=== PATIENT | male | born 1985 | race Caucasian/White ===

== ENCOUNTER 2016-11-06 12:54 | Emergency (ER) | payer OTHER ==
[~2016-11-06] VITALS: Ht 172.7 cm; Wt 70.0 kg
[~2016-11-06 12:54] MED LIST: DOXY100T PO; Z.0.NO CURRENT MEDS
[2016-11-06 12:57] VITALS: BP 162/94; PULSE 88; RESP 20; TEMP 97.8; O2SAT 100
[2016-11-06 13:12] LABS: MEAN CORPUSCULAR HGB CONC 36.2 % (32.0-36.0)
[2016-11-06] MEDS ORDERED: KETOROLAC TROMETHAMINE 30 MG/ML (IVP) VIAL IV PUSH ONE (13:15)
[2016-11-06] MEDS ORDERED: IOHEXOL 350 MG/ML 10 ML VIAL (for RAD DIAG) IV ONE (13:28)
--- NOTE | 2016-11-06 13:31 | PD ---
HPI Chief Complaint: Abdominal Pain Time Seen by Provider: 13:27 Travel History International Travel<30 days: No Contact w/Intl Traveler<30days: No Traveled to known affect area: No History of Present Illness HPI 31-year-old male that presents to the ED for evaluation of possible inguinal hernia. Per patient he has a history of inguinal hernia when he was a child but got repair. The patient has had no issues but about a week ago he sneezed and he felt a pop on his left lower groin. Per patient ever since any having some discomfort especially when he does heavy lifting or moves. Able to move however. He does state that he has a big bulging on the left groin. Per patient she's had some constipation since but denies any other symptom. No fevers chills or sweats. No chest pain or shortness of breath. Patient is 5 out of 10. Currently he has no pain. Patient denies any urinary symptoms. Patient has not general surgeon her PCP. Patient has no medical prongs. Allergies to amoxicillin. Patient came here today because he is concerned that he may need surgery for this. He denies any testicular pain but does state that some of the swelling goes into the testicles on the left side. PFSH Past Medical History Bipolar Disorder: Yes Depression: Yes (HX OF HALLUCINATIONS/SUICIDAL/HOMICIDAL IDEATIONS/SLEEP AND EATING DISORDER) Cardiovascular Problems: No Cerebrovascular Accident: No Diminished Hearing: No Genitourinary: No Headaches: Yes Musculoskeletal: No Neurologic: Yes Respiratory: No Migraines: No Seizures: Yes (LAST REPORTED 2007) Past Surgical History Abdominal Surgery: Yes (HERNIA REPAIR AT AGE 4 OR 5) Ear Surgery: No Endocrine Surgery: No Eye Surgery: No Genitourinary Surgery: No Oral Surgery: No Other Surgery: Yes ([place] DEPOSIT REMOVAL) Social History Alcohol Use: Yes (etoh daily approx 6 pk beer) Tobacco Use: Yes (PPD) Substance Use: Yes Allergies-Medications (Allergen,Severity, Reaction): Coded Allergies: Amoxicillin (Verified Allergy, Severe, 11/06/16) Reported Meds & Prescriptions Reported Meds & Active Scripts Active Diclofenac Sodium DR (Diclofenac Sodium) 75 Mg Tabdr 75 Mg PO BID PRN Review of Systems General / Constitutional: No: Fever, Chills, Weight Gain, Weight Loss, Other Eyes: No: Diploplia, Blurred Vision, Photophobia, Drainage, Redness, Foreign Body Sensation, Pain, Tearing, Blind Spots, Visual changes, Blindness, Other HENT: No: Headaches, Vertigo, Lightheadedness, Sore Throat, Rhinitis, Rhinorrhea, Congestion, Nosebleed, Neck Stiffness, Neck Pain, Masses, Gingival Bleeding, Dental Difficulties, Ear Discharge, Earache, Other Cardiovascular: No: Chest Pain or Discomfort, Palpitations, Irregular Rhythm, Tachycardia, Diaphoresis, Syncope, Dyspnea on exertion, Varicosities, Edema, Cyanosis, Varicosities, Phlebitis, Claudication, Other Respiratory: No: Cough, Shortness of Breath, Wheezing, Sneezing, Orthopnea, Hemoptysis, Stridor, Night Sweats, Pleuritic Pain, Other Gastrointestinal: Positive: Abdominal Pain, Constipation, Other (hernia), No: Nausea, Vomiting, Diarrhea, Hematemesis, Hematochezia, Changes in Bowel Habits, Indigestion, Dysphagia, Loss of Appetite Genitourinary: No: Urgency, Frequency, Dysuria, Nocturia, Hematuria, Decreased Urinary Output, Oliguria, Hesitancy, Dribbling, Incontinence, Pelvic Pain, Flank Pain, Dyspareunia, Discharge, Dysmenorrhea, Menorrhagia, Metorrhagia, Vaginal Bleeding, Other Musculoskeletal: No: Myalgias, Arthralgias, Limited ROM, Weakness, Cramping, Edema, Pain, Atrophy, Other Skin: No Rash, No Itching, No Dryness, No Lumps, No Hives, No Change in Pigmentation, No Change in nails, No Alopecia, No Lesions, No Breast Lumps, No Breast Tenderness, No Breast Swelling, No Other Neurologic: No: Weakness, Dizziness, Syncope, Focal Abnormalities, Coordination Problem, Tremor, Ataxia, Headache, Change in Mentation, Slurred Speech, Paresthesia, Incontinence, Seizures, Sensory Disturbance, Other Psychiatric: No: Anxiety, Depression, Suicidal Ideations, Disorder of Thought, Mood Disorder, Substance Abuse, Homicidal Ideation, Other Endocrine: No: Heat Intolerance, Cold Intolerance, Polyuria, Polydipsia, Other Hematologic/Lymphatic: No: Easy Bruising, Lymph Node Enlargement, Other Physical Exam Narrative GENERAL: SKIN: Warm and dry. HEAD: Atraumatic. Normocephalic. EYES: Pupils equal and round. No scleral icterus. No injection or drainage. ENT: No nasal bleeding or discharge. Mucous membranes pink and moist. Tongue is midline. No uvula deviation. NECK: Trachea midline. No JVD. CARDIOVASCULAR: Regular rate and rhythm. No murmurs, S3, S4. RESPIRATORY: No accessory muscle use. Clear to auscultation. Breath sounds equal bilaterally. GASTROINTESTINAL: Abdomen soft, non-tender, nondistended. Hepatic and splenic margins not palpable. Patient does have what appears to be a hernia to the left groin. He does appear to be reproducible keeps coming out. No sign of strangulation. Not severe pain. MUSCULOSKELETAL: Extremities without clubbing, cyanosis, or edema. No obvious deformities. NEUROLOGICAL: Awake and alert. No obvious cranial nerve deficits. Motor grossly within normal limits. Five out of 5 muscle strength in the arms and legs. Normal speech. PSYCHIATRIC: Appropriate mood and affect; insight and judgment normal. Data Data Last Documented VS Vital Signs Date Time Temp Pulse Resp B/P Pulse Ox O2 Delivery O2 Flow Rate FiO2 11/06/16 12:57 97.8 88 20 162/94 100 Room Air Orders Complete Blood Count With Diff (11/06/16 13:11) Basic Metabolic Panel (Bmp) (11/06/16 13:11) Ct Abd/Pel W Iv Contrast(Rout) (11/06/16 13:11) Iv Access Insert/Monitor (11/06/16 13:11) Ketorolac Inj (Toradol Inj) (11/06/16 13:15) Iohexol 350 Inj (Omnipaque 350 Inj) (11/06/16 13:28) Mandatory Outpatient Referral (11/06/16 13:42) Labs Laboratory Tests Test 11/06/16 13:20 White Blood Count 9.5 TH/MM3 Red Blood Count 5.53 MIL/MM3 Hemoglobin 17.2 GM/DL Hematocrit 47.6 % Mean Corpuscular Volume 86.0 FL Mean Corpuscular Hemoglobin 31.1 PG Mean Corpuscular Hemoglobin 36.2 % Concent Red Cell Distribution Width 13.3 % Platelet Count 299 TH/MM3 Mean Platelet Volume 8.3 FL Neutrophils (%) (Auto) 66.6 % Lymphocytes (%) (Auto) 21.0 % Monocytes (%) (Auto) 8.0 % Eosinophils (%) (Auto) 3.9 % Basophils (%) (Auto) 0.5 % Neutrophils # (Auto) 6.3 TH/MM3 Lymphocytes # (Auto) 2.0 TH/MM3 Monocytes # (Auto) 0.8 TH/MM3 Eosinophils # (Auto) 0.4 TH/MM3 Basophils # (Auto) 0.0 TH/MM3 CBC Comment AUTO DIFF MDM Medical Decision Making Medical Screen Exam Complete: Yes Emergency Medical Condition: Yes Medical Record Reviewed: Yes Interpretation(s) CBC Diagram 11/06/16 13:20 Last Impressions Abdomen/Pelvis CT 11/06/16 1311 Signed Impressions: Service Date/Time: Sunday, November 06, 2016 13:23 - CONCLUSION: 1. Fat containing left inguinal hernia. Primitivo Toth MD Differential Diagnosis Inguinal hernia versus femoral hernia versus related hernia versus constipation versus obstruction Narrative Course 31-year-old male that presents to the ED for evaluation of possible inguinal hernia. Patient was properly examined and was found to have signs and symptoms consistent appears to be inguinal hernia at this time. Does appear to be reducible at this time but it keeps coming out. Accommodation this time is for imaging to rule out any sign of acute secondary to constipation in the discomfort in his upper abdomen. Patient was given Toradol for pain. Labs and imaging showed left inguinal fat hernia. No sign of strength in the patient. Labs were essentially unremarkable. Patient was reassured. Hernia itself does look impressive and I do believe the patient could require surgery. There for mandatory follow-up was ordered for him as he has no insurance. She understands that is up to him to follow up. At this time I do recommend ice and anti-inflammatories to help with discomfort as needed. Patient was told to avoid heavy lifting. See ED if worsening symptoms. Follow with general surgeon. Diagnosis Primary Impression: Inguinal hernia Qualified Code: K40.90 - Unilateral inguinal hernia without obstruction or gangrene, recurrence not specified Patient Instructions: General Instructions Additional Instructions: Take medication as prescribed. Only use as needed. I will recommend taking some MiraLAX jvha-noa-yauneia to scalp soft and his stools to prevent any worsening herniation. Follow with PCP. Follow with general surgeon. See ED worsening symptoms. Med/Other Pt SpecificInfo: Prescription(s) given Scripts Diclofenac Sodium DR 75 Mg Tabdr75 Mg PO BID PRN (PAIN SCALE 1 TO 10) #20 TAB Prov:Juan Pablo Tompkins MD 11/06/16 Disposition: 01 DISCHARGE HOME Condition: Stable Oscar Rich Nov 06, 2016 13:31
[2016-11-06 13:35] LABS: AUTOMATED NEUTROPHIL # 6.3 TH/MM3 (1.8-7.7); BASOPHIL % 0.5 % (0.0-2.0); EOSINOPHIL # 0.4 TH/MM3 (0-0.4); EOSINOPHIL % 3.9 % (0.0-4.0); HEMATOCRIT 47.6 % (39.0-51.0); MEAN CORPUSCULAR HEMOGLOBIN 31.1 PG (27.0-34.0); NEUT % 66.6 % (16.0-70.0); PLATELET COUNT 299 TH/MM3 (150-450); RED BLOOD COUNT 5.53 MIL/MM3 (4.50-5.90); RED CELL DISTRIBUTION WIDTH 13.3 % (11.6-17.2); WHITE BLOOD COUNT 9.5 TH/MM3 (4.0-11.0)
--- NOTE | 2016-11-06 13:37 | RADRPT ---
EXAM DATE/TIME: 11/06/2016 13:23 This report includes an Addendum and supersedes previous reports for this exam. [facility] COMPARISON: No previous studies available for comparison. INDICATIONS : Left groin pain for 1 week; evaluate for inguinal hernia. IV CONTRAST: 95 cc Omnipaque 350 (iohexol) IV ORAL CONTRAST: No oral contrast ingested. RADIATION DOSE: 6.05 CTDIvol (mGy) MEDICAL HISTORY : None SURGICAL HISTORY : None. ENCOUNTER: Initial ACUITY: 1 week PAIN SCALE: 5/10 LOCATION: Left Groin TECHNIQUE: Volumetric scanning of the abdomen and pelvis was performed. Using automated exposure control and ad justment of the mA and/or kV according to patient size, radiation dose was kept as low as reasonably achievable to obtain optimal diagnostic quality images. FINDINGS: LOWER LUNGS: The visualized lower lungs are clear. LIVER: Homogeneous density without lesion. There is no dilation of the biliary tree. No calcified gallston es. SPLEEN: Normal size without lesion. PANCREAS: Within normal limits. KIDNEYS: Normal in size and shape. There is no mass, stone or hydronephrosis. ADRENAL GLANDS: Within normal limits. VASCULAR: There is no aortic aneurysm. BOWEL/MESENTERY: The stomach, small bowel, and colon demonstrate no acute abnormality. There is no free intraperitone al air or fluid. There is soft tissue prominence adjacent to a small bowel loop in the left mid abdom en measuring 3.0 x 2.5 cm. This could represent a diverticulum or soft tissue mass involving the smal l bowel. Minimal induration of the peritoneal fat in the left lower quadrant of uncertain etiology. ABDOMINAL WALL: Within normal limits. RETROPERITONEUM: There is no lymphadenopathy. BLADDER: No wall thickening or mass. REPRODUCTIVE: Within normal limits. INGUINAL: There is no lymphadenopathy or hernia on the right. Fat containing left inguinal hernia extending int o the scrotum. MUSCULOSKELETAL: Within normal limits for patient age. CONCLUSION: 1. Fat containing left inguinal hernia. 2. Small soft tissue mass versus complex diverticulum involving a small bowel loop measuring 3.0 x 2. 5 cm. 3. There is some minimal induration of the peritoneal fat in the left lower quadrant of uncertain gela ology. Primitivo Toth MD on November 06, 2016 at 13:34 Board Certified Radiologist. This report was verified electronically. ADDENDUM: Soft tissue mass versus complex diverticulum in the small bowel. Primitivo Toth MD on November 22, 2016 at 15:58 Board Certified Radiologist. This report was verified electronically.
[2016-11-06 13:41] LABS: HEMO FLAGS AUTO DIFF
[2016-11-06] MEDS ORDERED: DICL75TA PO (13:44)
[2016-11-06 13:48] LABS: BICARBONATE 29.1 MEQ/L (21.0-32.0); POTASSIUM 4.1 MEQ/L (3.5-5.1)
[2016-11-06 14:10] LABS: SCAN/DIFF AUTO DIFF CONFIRMED
[2016-12-06] MEDS ORDERED: HYDR-3533 PO (14:11)
[2017-01-19] MEDS ORDERED: LEVA500T PO (17:10)
[2017-01-19] MEDS ORDERED: TRAZ50TA12 PO (17:14)
== END 2016-11-06 14:29 | disposition home or self-care (01) ==
LOC: NEPE 12:54
DX: K40.90 Unilateral inguinal hernia, without obstruction or gangrene, not specified as recurrent (principal); F17.210 Nicotine dependence, cigarettes, uncomplicated; Z88.0 Allergy status to penicillin
CPT/HCPCS: 74177; 80048; 85025; 96374; 99283; J1885; Q9967

== ENCOUNTER 2016-12-08 05:15 | Inpatient (IN) | payer OTHER ==
[~2016-12-08] VITALS: Ht 172.7 cm; Wt 72.0 kg
[~2016-12-08 05:15] MED LIST changes: +DICL75TA PO; -DOXY100T PO; +HYDR-3533 PO; -Z.0.NO CURRENT MEDS
[2016-12-08] MEDS ORDERED: INSULIN HUMAN REGULAR 1,000 UNITS/10 ML VIAL SQ PRN (06:00)
[2016-12-08] MEDS ORDERED: VANCOMYCIN 1,000 MG/NS 250 ML IV SCH ×2 (06:00)
[2016-12-08] MEDS ORDERED: METOPROLOL TARTRATE 25 MG TAB PO PRN (06:00)
[2016-12-08] MEDS: SODIUM CHLORID 0.9% 500 ML IV SCH ×2 (06:00→22:40)
[2016-12-08 06:38] VITALS: BP 130/78; PULSE 68; RESP 18; TEMP 97.8; O2SAT 97
[2016-12-08] MEDS: LACTATED RINGER'S 1000 ML IV SCH (06:42)
[2016-12-08 06:53] LABS: BASOPHIL # 0.1 TH/MM3 (0-0.2); BASOPHIL % 0.5 % (0.0-2.0); EOSINOPHIL # 0.4 TH/MM3 (0-0.4); EOSINOPHIL % 3.4 % (0.0-4.0); HEMATOCRIT 46.2 % (39.0-51.0); HEMO FLAGS DIFF FINAL; LYMPH % 18.4 % (9.0-44.0); LYMPHOCYTE # 2.1 TH/MM3 (1.0-4.8); MEAN CELL VOLUME 87.2 FL (80.0-100.0); MEAN CORPUSCULAR HGB CONC 35.5 % (32.0-36.0); MONO % 8.8 % (0.0-8.0); NEUT % 68.9 % (16.0-70.0); PLATELET COUNT 275 TH/MM3 (150-450); RED BLOOD COUNT 5.29 MIL/MM3 (4.50-5.90); RED CELL DISTRIBUTION WIDTH 13.4 % (11.6-17.2); WHITE BLOOD COUNT 11.6 TH/MM3 (4.0-11.0)
[2016-12-08 07:02] LABS: POTASSIUM 3.8 MEQ/L (3.5-5.1)
[2016-12-08] MEDS ORDERED: BUPIVACAINE/EPINEPHRINE 0.25% PF 10 ML VIAL ONE (07:05)
[2016-12-08] MEDS ORDERED: FAMOTIDINE 20 MG/2 ML VIAL ONE (07:16)
[2016-12-08] MEDS ORDERED: MIDAZOLAM HCL 2 MG/2 ML VIAL ONE (07:16)
[2016-12-08] MEDS ORDERED: DEXAMETHASONE SOD PHOS 4 MG/ML VIAL ONE (07:16)
[2016-12-08] MEDS ORDERED: ACETAMINOPHEN 1000 MG/100 ML VIAL IV ONE (07:16)
[2016-12-08] MEDS ORDERED: BUPIVACAINE/EPINEPHRINE 0.25% PF 10 ML VIAL INFIL ONE (07:59)
[2016-12-08] MEDS ORDERED: metroNIDAZOLE 500 MG INJ 100 ML IV ONE (10:29)
[2016-12-08] MEDS ORDERED: MEPERIDINE HCL 50 MG/ML VIAL ONE (10:30)
[2016-12-08] MEDS: LACTATED RINGER'S 1000 ML INJ 1,000 ML IV SCH ×2 (11:17→21:10)
[2016-12-08] MEDS ORDERED: fentaNYL CITRATE 250 MCG/5 ML AMP ONE (11:24)
--- NOTE | 2016-12-08 11:27 | HHI.PR ---
Immediate Post Op Note Procedure Date: Dec 08, 2016 Pre Op Diagnosis: left inguinal hernia, small bowel mass Post Op Diagnosis: indirect reducible left inguinal hernia, small bowel mass Surgeon: Perry King MD Audio Visual Technician(s): Dr. Severo sepulveda due to the complex laparoscopic surgery. He was available to asst and camera control Procedure: lap small bowel resection with primary anastomosis, lap left inguinal hernia repair with mesh Findings: large left inguinal hernia, reducible, moderate size small bowel mass with visualized mesenteric lymph node Complications: none Specimen(s) removed: small bowel with mass Estimated blood loss: 40 Anesthesia: General Drains: None IVF (1000) Patient to: PACU Patient Condition: Good Perry King MD Dec 08, 2016 11:27
[2016-12-08] MEDS ORDERED: SODIUM CHLORIDE 0.9% FLUSH 5 ML FLUSH IVF PRN (11:30)
[2016-12-08] MEDS: DOCUSATE SODIUM 100 MG CAP PO SCH ×2 (11:30→21:09)
[2016-12-08] MEDS ORDERED: NALOXONE HCL 0.4 MG/ML AMP IV PRN (11:30)
[2016-12-08] MEDS ORDERED: MORPHINE SULFATE 4 MG/ML INJ IV PRN (11:30)
[2016-12-08] MEDS: SODIUM CHLORIDE 0.9% FLUSH 5 ML FLUSH IVF SCH ×2 (11:30→21:00)
[2016-12-08] MEDS ORDERED: Post-op Orders (for Pharmacy) MISC XX ONE (11:30)
[2016-12-08] MEDS ORDERED: *morphine SULFATE 8 MG/ML PERIprocedure ONLY ONE ×3 (11:31→12:14)
[2016-12-08] MEDS ORDERED: *ONDANSETRON 4 MG VIAL PERIprocedural Use ONLY ONE (11:36)
[2016-12-08] MEDS: PANTOPRAZOLE SODIUM 40 MG VIAL IV SCH (12:00)
[2016-12-08] MEDS ORDERED: *HYDROmorphone PF 1 MG VIAL PERIprocedural Use ONLY ONE ×3 (12:38→15:44)
[2016-12-08] MEDS ORDERED: LACTATED RINGER'S 1000 ML INJ 1,000 ML IV ONE (12:49)
[2016-12-08] MEDS ORDERED: PROPOFOL 200 MG/20 ML AMP IV ONE (12:49)
[2016-12-08] MEDS ORDERED: ONDANSETRON HCL 4 MG/2 ML VIAL IV PUSH ONE (12:49)
[2016-12-08] MEDS ORDERED: ePHEDrine/NS 25 MG/5 ML SYR IV ONE (12:49)
[2016-12-08 13:00] VITALS: BP 133/82; PULSE 77; RESP 16; TEMP 98.1; O2SAT 98
[2016-12-08] MEDS: ACETAMINOPHEN/HYDROcodone 325 MG/5 MG TAB PO PRN ×3 (13:41→23:47)
[2016-12-08 16:00] VITALS: BP 117/86; PULSE 83; RESP 16; TEMP 97.6; O2SAT 95
[2016-12-08] MEDS: NICOTINE 14 MG/24 HR PATCH TD SCH (17:01)
[2016-12-08] MEDS: CIPROFLOXACIN 400 MG PREMIX 200 ML IV SCH (17:01)
[2016-12-08] MEDS: metroNIDAZOLE 500 MG INJ 100 ML IV SCH (18:30)
[2016-12-08 20:00] VITALS: BP 113/58; PULSE 92; RESP 16; TEMP 97.9; O2SAT 96
[2016-12-08] MEDS ORDERED: REMOVE OLD NICODERM (NICOTINE) PATCH TD SCH (21:00)
[2016-12-08] MEDS: ONDANSETRON HCL 4 MG/2 ML VIAL IV PRN (21:09)
[2016-12-09] VITALS: BP 123/63; PULSE 69; RESP 18; TEMP 98; O2SAT 98
[2016-12-09 04:00] VITALS: BP 115/68; PULSE 70; RESP 18; TEMP 98.6; O2SAT 95
[2016-12-09] MEDS: ACETAMINOPHEN/HYDROcodone 325 MG/5 MG TAB PO PRN ×4 (04:04→16:20)
[2016-12-09] MEDS: metroNIDAZOLE 500 MG INJ 100 ML IV SCH ×2 (04:06→08:40)
[2016-12-09] MEDS: CIPROFLOXACIN 400 MG PREMIX 200 ML IV SCH ×2 (04:06→15:04)
[2016-12-09 05:40] LABS: AUTOMATED NEUTROPHIL # 10.1 TH/MM3 (1.8-7.7); BASOPHIL % 0.1 % (0.0-2.0); EOSINOPHIL % 0.3 % (0.0-4.0); HEMATOCRIT 40.8 % (39.0-51.0); HEMO FLAGS DIFF FINAL; LYMPH % 14.1 % (9.0-44.0); LYMPHOCYTE # 1.9 TH/MM3 (1.0-4.8); MEAN CELL VOLUME 86.8 FL (80.0-100.0); MEAN CORPUSCULAR HEMOGLOBIN 30.8 PG (27.0-34.0); MEAN CORPUSCULAR HGB CONC 35.5 % (32.0-36.0); MONO % 10.8 % (0.0-8.0); NEUT % 74.7 % (16.0-70.0); PLATELET COUNT 271 TH/MM3 (150-450); RED BLOOD COUNT 4.69 MIL/MM3 (4.50-5.90); RED CELL DISTRIBUTION WIDTH 13.5 % (11.6-17.2); WHITE BLOOD COUNT 13.5 TH/MM3 (4.0-11.0)
[2016-12-09] MEDS: LACTATED RINGER'S 1000 ML IV SCH (05:46)
[2016-12-09 05:53] LABS: BICARBONATE 26.4 MEQ/L (21.0-32.0); POTASSIUM 3.3 MEQ/L (3.5-5.1)
[2016-12-09] MEDS: LACTATED RINGER'S 1000 ML INJ 1,000 ML IV SCH (07:17)
[2016-12-09 08:00] VITALS: BP 119/69; PULSE 67; RESP 19; TEMP 98.5; O2SAT 96
[2016-12-09] MEDS: SODIUM CHLORIDE 0.9% FLUSH 5 ML FLUSH IVF SCH (08:39)
[2016-12-09] MEDS: NICOTINE 14 MG/24 HR PATCH TD SCH (08:39)
[2016-12-09] MEDS: DOCUSATE SODIUM 100 MG CAP PO SCH (08:39)
[2016-12-09 09:30] VITALS: O2SAT 96
[2016-12-09] MEDS ORDERED: HYDR-3516 PO (09:36)
[2016-12-09] MEDS ORDERED: CIPR-9 PO (09:38)
[2016-12-09] MEDS ORDERED: METR-1 PO (09:38)
[2016-12-09] MEDS ORDERED: ZOFR4TAB PO (09:40)
[2016-12-09] MEDS ORDERED: PNEUMOCOCCAL POLYVALENT INJ 25 MCG/0.5 ML SYR IM ONE (10:00)
--- NOTE | 2016-12-09 10:40 | HHI.DS ---
Discharge Summary Admission Date Dec 08, 2016 at 15:02 Discharge Date: Dec 09, 2016 Admitting Diagnosis Brief History 31 year old male POD1 lap small bowel resection with primary anastomosis, lap left inguinal hernia repair with mesh CBC/BMP: 12/09/16 0458 12/09/16 0458 Significant Findings Laboratory Tests Test 12/08/16 12/09/16 06:35 04:58 White Blood Count 11.6 TH/MM3 13.5 TH/MM3 (4.0-11.0) (4.0-11.0) Monocytes (%) (Auto) 8.8 % (0.0-8.0) 10.8 % (0.0-8.0) Neutrophils # (Auto) 8.0 TH/MM3 10.1 TH/MM3 (1.8-7.7) (1.8-7.7) Monocytes # (Auto) 1.0 TH/MM3 1.4 TH/MM3 (0-0.9) (0-0.9) Estimat Glomerular Filtration 77 ML/MIN (>89) 79 ML/MIN (>89) Rate Neutrophils (%) (Auto) 74.7 % (16.0-70.0) Potassium Level 3.3 MEQ/L (3.5-5.1) Random Glucose 110 MG/DL (74-106) Calcium Level 8.3 MG/DL (8.5-10.1) PE at Discharge Alert and awake Cardio: RRR Resp: CTAB Abd: lap sites c/d/i; abd soft Hospital Course This is a 31 year old male POD1 lap small bowel resection with primary anastomosis and lap left inguinal hernia repair with mesh. The patient did well post-operatively without any complications. His pain was controlled using PO pain meds. He was able to tolerate a regular diet. He will follow up with Dr. King next week and review pathology. Pt Condition on Discharge: Good Discharge Disposition: Discharge Home Lyndsay Jenkins Dec 09, 2016 10:40
[2016-12-09 12:00] VITALS: BP 117/73; PULSE 66; RESP 18; TEMP 97.8; O2SAT 97
[2016-12-09] MEDS: PANTOPRAZOLE SODIUM 40 MG VIAL IV SCH (12:16)
[2016-12-09] MEDS: ONDANSETRON HCL 4 MG/2 ML VIAL IV PRN (12:16)
[2016-12-09 16:00] VITALS: BP 104/62; PULSE 66; RESP 19; TEMP 98.2; O2SAT 96
--- NOTE | 2016-12-11 17:17 | MP ---
cc: TE KING MD DATE OF SURGERY 12/08/16 PREOPERATIVE DIAGNOSIS Left inguinal hernia, small bowel mass. POSTOPERATIVE DIAGNOSIS 1. Left inguinal hernia, small bowel mass. 2. Indirect left inguinal hernia, small bowel mass. PROCEDURE PERFORMED 1. Diagnostic laparoscopy 2. Laparoscopic small bowel resection including small bowel mass with primary anastomosis. 3. Laparoscopic left inguinal hernia repair by Dr. Serra SURGEON Dr. Sarai King SEAM STAY STITCHER Dr. Serra - Due to the complex laparoscopic procedure, it is necessary to have an observation assistant to assist with camera control retraction and bowel manipulation. ANESTHESIA GETA. IV FLUIDS Entire procedure 1000 mL. ESTIMATED BLOOD LOSS 40 mL. DRAINS None COMPLICATIONS None. WOUND CLASSIFICATION Clean contaminated FINDINGS Approximately 4 x 3 cm proximal small bowel mass with small visible lymph node, reducible left inguinal hernia. INDICATION The patient is a 31-year-old male who presented with approximately 1-year history of left inguinal hernia. The patient noted the hernia to be increasing in size with significant pain. He had further workup including trip to the emergency department due to increasing pain and protrusion prompting a CT scan for evaluation. On the CT scan in review, the patient noted to have large left inguinal hernia. He also was noted to have questionable small bowel mass. Therefore, full discussion decision was for evaluation of hernia and tj laparoscopic hernia repair along with diagnostic laparoscopy and evaluation of small bowel mass. Again, discussed with the patient in detail. PROCEDURE IN DETAIL The patient was taken to the operating suite, placed in supine position. He was prepped and draped in usual sterile fashion after induction of general endotracheal anesthesia. Brief time-out done stating correct patient, procedure surgical site, were all in agreement with this. Attention directed to the left upper quadrant. Local anesthetic injected, stab domo incision made. Veress needle obtained and placed intra-abdominally. Abdomen insufflated to 15 mm pneumoperitoneum. The Veress needle was confirmed placement with a saline drop test. Veress needle changed for a 5-mm trocar. Five mm scope obtained. On cursory inspection, no evidence of injury. On inspection, there was noted be a large left inguinal hernia. Three other ports were placed, one 5 mm right lower quadrant port and infraumbilical 12 mm port followed by a left lower quadrant 12 mm port. The diagnostic laparoscopy was commenced. We ran the bowel proximally with the findings of a 4 x approximate 3 cm small bowel mass in the small lymph node. At this point, decision was made for resection as the mass was sitting on the mesenteric border and only removing the mass we were concerned may compromise blood supply going to the small bowel. Therefore, small bowel resection was warranted. The bowel was resected using a blue load x2 Endo-SHANNAN stapler. Harmonic scalpel used to transect the mesentery. Small bowel the mass was placed in the EndoCatch bag and removed from the left lower quadrant 12 mm port. Next, the bowel was then left in discontinuity and procedure transitioned to the left inguinal hernia repair. Dr. Buddy Serra to dictate his portion of procedure for a left inguinal hernia repair. Following proper repair and closure of the peritoneum so it was watertight, attention redirected to the small bowel. At this point, decision was made to continue on with the primary anastomosis. This was done laparoscopically. The small bowel was placed in opposition of each other and approximated with a 2-0 polysorb endosuture. Harmonic scalpel used to make enterotomies in each sides of the bowel and able to fashion a gold load Endo SHANNAN stapler to create the through and through layer. This was done with minimal bleeding. Hemostasis obtained. The open enterotomy was then approximated with Endosuture of 2-0 polysorb and a second blue load Endo-SHANNAN stapler was used to approximate the small bowel ends of the enterotomy. Once we were content with this, snow hematologic agent was placed over staple line and small clips were placed to help achieve hemostasis. The mesenteric defect was closed with 2-0 polypsorb endostitch suture in a jlvkkk-ow-campd fashion. Again hemostasis obtained. Suction irrigation done. There was no spillage of enteric contents. The small bowel noted to be patent anastomosis and was under no tension and again noted to be completely clean. Omentum was placed over the small bowel. This was done to cover and separate the hernia repair from the small bowel procedure. Next, the abdomen was desufflated. Trocars were removed under direct visualization. The 12-mm trocars were closed with a 0 Vicryl on the UR6 with a [id number]-op-[id number] fashion to the umbilicus in the left lower quadrant. Local anesthetic injected at all port sites. Subcuticular 4-0 Monocryl sutures were placed and sterile dressings were then placed. The patient tolerated procedure well. There was no intraoperative complication. All lap and instrument counts were the correct at the end of the procedure. The patient was extubated and taken stable to PACU. MD PRASHANTH Rey/ /10:31 AM /4:58 PM
--- NOTE | 2016-12-12 18:15 | MP ---
cc: BUDDY SERRA M.D., LARS S. MD DATE OF SURGERY: 12/12/2016. PREOPERATIVE DIAGNOSIS: Symptomatic reducible left inguinal hernia. POSTOPERATIVE DIAGNOSIS: Symptomatic reducible indirect left inguinal hernia. OPERATIVE PROCEDURE PERFORMED: Laparoscopic left inguinal hernia repair with mesh. ANESTHESIA: General endotracheal. SURGEON: Buddy Serra MD. DATABASE MANAGEMENT SPECIALIST: Perry King MD. ESTIMATED BLOOD LOSS: Minimal. DESCRIPTION OF THE PROCEDURE IN DETAIL: Please see Dr. King's dictation for the laparoscopic bowel portion of the procedure. 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 The patient was placed in Trendelenburg position. As a 12-mm trocar had already been placed in the left lower quadrant and a 5 mm trocar in the right lower quadrant position was already accomplished. The peritoneum was incised and peeled downward. The hernia sac was reduced as much as possible. Careful blunt dissection revealed an extremely large hernia sac. This was amputated approximately the three-quarters of the way down the inguinal canal as the patient was felt to be at risk for ischemic orchitis with further dissection. When this was completed, a window was created behind the spermatic cord structures. Brandon's ligament was dissected free from the surrounding structures and exposed. A 3 x 6 inch piece of Ultrapro Mesh was trimmed to fit the defect and slit longitudinally. The corners were rounded. The mesh was placed into the pelvis and the inferior leaf brought under the spermatic cord structures. The mesh was fixed to Brandon's ligament with 4.0 mm adrienne and then to the transversalis fascia with 4.8 mm adrienne. Care was taken to staple around the epigastric vessels. The mesh was closed laterally with two 4.8 mm adrienne to create a new internal ring and minimize the risk for recurrence. At the completion of this portion of the procedure after placing the 4.8 mm adrienne anteriorly, the surgeon's finger was placed into the inguinal canal and the defect was seen to be surrounded by at least 4 to 5 cm of mesh material beyond the edge of the defect. With hemostasis assured, the peritoneum was then closed with 4.8 mm adrienne after decreasing insufflation in the abdomen. The peritoneum was completely closed. At this point, attention was turned back to the upper abdomen. Please see Dr. King's dictation for the completion of this portion of the procedure. MD HEMALATHA Bond/COLE /5:23 PM /6:10 PM
[2017-01-19] MEDS ORDERED: LEVA500T PO (17:10)
[2017-01-19] MEDS ORDERED: TRAZ50TA12 PO (17:14)
== END 2016-12-09 17:48 | disposition home or self-care (01) | DRG 352 ==
LOC: HSDC 05:15 → HSDI 11:23 → OBSVTOIN 15:02 → N07A 15:54
PROVIDERS: ADMIT Surgery; ATTEND Surgery
PROC: 0DB84ZX Excision of Small Intestine, Percutaneous Endoscopic Approach, Diagnostic (ICD-10-PCS; 2016-12-08)
PROC: 0YU64JZ Supplement Left Inguinal Region with Synthetic Substitute, Percutaneous Endoscopic Approach (ICD-10-PCS; principal; 2016-12-08 07:24)
PROC: 07BB4ZX Excision of Mesenteric Lymphatic, Percutaneous Endoscopic Approach, Diagnostic (ICD-10-PCS; 2016-12-08 07:24)
DX: K40.90 Unilateral inguinal hernia, without obstruction or gangrene, not specified as recurrent (principal); K57.10 Diverticulosis of small intestine without perforation or abscess without bleeding; R59.0 Localized enlarged lymph nodes; Z23 Encounter for immunization
CPT/HCPCS: 80048; 85025; 88307; 90732; 94150; C1781; C9113; J0131; J0744; J1100; J1170; J2175; J2250; J2270; J2405; J3010; J3370; J7050; J7120

== ENCOUNTER 2017-05-26 09:29 | Emergency (ER) | payer OTHER ==
[~2017-05-26] VITALS: Ht 172.7 cm; Wt 66.0 kg
[~2017-05-26 09:29] MED LIST changes: -DICL75TA PO; -HYDR-3533 PO; +LEVA500T PO; +TRAZ50TA12 PO
[2017-05-26] MEDS ORDERED: LIDOCAINE VISCOUS 2% SOLN 15 ML UDC PO ONE (10:00)
[2017-05-26] MEDS ORDERED: ALUMINUM/MAGNESIUM/SIMETH 30 ML CUP PO ONE (10:00)
[2017-05-26] MEDS ORDERED: FAMOTIDINE 20 MG TAB PO ONE (10:00)
[2017-05-26 10:05] VITALS: BP 132/82; PULSE 63; RESP 16; O2SAT 98
[2017-05-26 10:19] LABS: AUTOMATED NEUTROPHIL # 9.2 TH/MM3 (1.8-7.7); BASOPHIL # 0.1 TH/MM3 (0-0.2); BASOPHIL % 0.5 % (0.0-2.0); EOSINOPHIL # 0.3 TH/MM3 (0-0.4); EOSINOPHIL % 2.1 % (0.0-4.0); HEMATOCRIT 46.3 % (39.0-51.0); HEMO FLAGS DIFF FINAL; LYMPH % 17.3 % (9.0-44.0); LYMPHOCYTE # 2.2 TH/MM3 (1.0-4.8); MEAN CELL VOLUME 88.2 FL (80.0-100.0); MEAN CORPUSCULAR HEMOGLOBIN 30.8 PG (27.0-34.0); MEAN CORPUSCULAR HGB CONC 34.9 % (32.0-36.0); MONO % 6.9 % (0.0-8.0); NEUT % 73.2 % (16.0-70.0); PLATELET COUNT 294 TH/MM3 (150-450); RED BLOOD COUNT 5.25 MIL/MM3 (4.50-5.90); RED CELL DISTRIBUTION WIDTH 13.1 % (11.6-17.2); WHITE BLOOD COUNT 12.5 TH/MM3 (4.0-11.0)
[2017-05-26 10:49] LABS: ALT (GPT) 21 U/L (12-78); ANION GAP 9 MEQ/L (5-15); AST (GOT) 11 U/L (15-37); BICARBONATE 26.1 MEQ/L (21.0-32.0); BLOOD UREA NITROGEN 14 MG/DL (7-18); CHLORIDE 104 MEQ/L (98-107); GLOMERULAR FILTRATION RATE 79 ML/MIN (>89); POTASSIUM 3.6 MEQ/L (3.5-5.1); SODIUM (NA) 139 MEQ/L (136-145)
[2017-05-26 10:51] LABS: ALKALINE PHOSPHATASE 103 U/L (45-117); TOTAL BILIRUBIN ADULT 0.6 MG/DL (0.2-1.0)
[2017-05-26] MEDS ORDERED: RANI150T PO (10:59)
--- NOTE | 2017-05-26 10:59 | PD ---
HPI Chief Complaint: Abdominal Pain Time Seen by Provider: 09:46 Travel History International Travel<30 days: No Contact w/Intl Traveler<30days: No Traveled to known affect area: No History of Present Illness HPI Is a 32-year-old man who presents to the emergency department with abdominal pain and epigastric pain. Symptoms started yesterday. He is refluxing past. He's had diverticulitis with bowel resection in the past. He does not take NSAIDs but he drinks 2 beers most days. Positive tobacco. History Past Medical History Medical History: Denies Significant Hx Tetanus Vaccination: Unknown Influenza Vaccination: No Social History Alcohol Use: Yes (etoh daily approx 6 pk beer) Tobacco Use: Yes (PPD) Allergies-Medications (Allergen,Severity, Reaction): Coded Allergies: amoxicillin (Unverified Allergy, Severe, 05/26/17) Reported Meds & Prescriptions Reported Meds & Active Scripts Active No Active Prescriptions or Reported Medications Review of Systems Except as stated in HPI: all other systems reviewed are Neg Physical Exam Narrative GENERAL: Well-appearing 32-year-old man, no acute distress. SKIN: Focused skin assessment warm/dry. HEAD: Atraumatic. Normocephalic. EYES: Pupils equal and round. No scleral icterus. No injection or drainage. ENT: No nasal bleeding or discharge. Mucous membranes pink and moist. NECK: Trachea midline. No JVD. CARDIOVASCULAR: Regular rate and rhythm. No murmur appreciated. RESPIRATORY: Normal rate and effort. GASTROINTESTINAL: Admits flat and soft. Minimal epigastric tenderness. MUSCULOSKELETAL: No obvious deformities. No edema. NEUROLOGICAL: Awake and alert. No obvious cranial nerve deficits. Motor grossly within normal limits. Normal speech. PSYCHIATRIC: Appropriate mood and affect; insight and judgment normal. Data Data Last Documented VS Vital Signs Date Time Temp Pulse Resp B/P (MAP) Pulse Ox O2 Delivery O2 Flow Rate FiO2 05/26/17 10:05 63 16 132/82 (99) 98 Room Air Orders Orders Complete Blood Count With Diff (05/26/17 09:46) Comprehensive Metabolic Panel (05/26/17 09:46) Lipase (05/26/17 09:46) Al-Mag Hy-Si 40-40-4 Mg/Ml Liq (Mag-Al P (05/26/17 10:00) Lidocaine 2% Viscous (Xylocaine 2% Visco (05/26/17 10:00) Famotidine (Pepcid) (05/26/17 10:00) Labs Laboratory Tests Test 05/26/17 09:55 White Blood Count 12.5 TH/MM3 Red Blood Count 5.25 MIL/MM3 Hemoglobin 16.2 GM/DL Hematocrit 46.3 % Mean Corpuscular Volume 88.2 FL Mean Corpuscular Hemoglobin 30.8 PG Mean Corpuscular Hemoglobin Concent 34.9 % Red Cell Distribution Width 13.1 % Platelet Count 294 TH/MM3 Mean Platelet Volume 8.6 FL Neutrophils (%) (Auto) 73.2 % Lymphocytes (%) (Auto) 17.3 % Monocytes (%) (Auto) 6.9 % Eosinophils (%) (Auto) 2.1 % Basophils (%) (Auto) 0.5 % Neutrophils # (Auto) 9.2 TH/MM3 Lymphocytes # (Auto) 2.2 TH/MM3 Monocytes # (Auto) 0.9 TH/MM3 Eosinophils # (Auto) 0.3 TH/MM3 Basophils # (Auto) 0.1 TH/MM3 CBC Comment DIFF FINAL Differential Comment Blood Urea Nitrogen 14 MG/DL Creatinine 1.09 MG/DL Random Glucose 98 MG/DL Total Protein 7.3 GM/DL Albumin 3.8 GM/DL Calcium Level 8.6 MG/DL Alkaline Phosphatase 103 U/L Aspartate Amino Transf (AST/SGOT) 11 U/L Alanine Aminotransferase (ALT/SGPT) 21 U/L Total Bilirubin 0.6 MG/DL Sodium Level 139 MEQ/L Potassium Level 3.6 MEQ/L Chloride Level 104 MEQ/L Carbon Dioxide Level 26.1 MEQ/L Anion Gap 9 MEQ/L Estimat Glomerular Filtration Rate 79 ML/MIN Lipase 65 U/L [facility] Medical Decision Making Medical Screen Exam Complete: Yes Emergency Medical Condition: Yes Interpretation(s) LABS: CBC remarkable for mild leukocytosis. CMP unremarkable. Lipases unremarkable Differential Diagnosis Gastritis, GERD, reflux, pancreatitis, hepatobiliary disease, other Narrative Course 32-year-old male with gastritis symptoms. Looks well. Minimal tenderness. Labs normal. Recommend Zantac. Diagnosis Primary Impression: Gastritis Additional Instructions: Avoid alcohol until symptoms resolve. Stop smoking. Take Tylenol if needed for pain. Take ranitidine as prescribed. Follow-up with her primary doctor in 2-4 days if not completely well. Med/Other Pt SpecificInfo: Prescription(s) given Scripts Ranitidine (Ranitidine) 150 Mg Tab 150 MG PO BID for Heartburn Management, #60 TAB 0 Refills Prov: Ponce Ba MD 05/26/17 Disposition: 01 DISCHARGE HOME Condition: Stable Ponce Ba MD May 26, 2017 10:59
== END 2017-05-26 11:24 | disposition home or self-care (01) ==
LOC: NEPD 09:29
DX: K29.70 Gastritis, unspecified, without bleeding (principal); D72.829 Elevated white blood cell count, unspecified; K57.92 Diverticulitis of intestine, part unspecified, without perforation or abscess without bleeding; F17.200 Nicotine dependence, unspecified, uncomplicated; Z88.0 Allergy status to penicillin
CPT/HCPCS: 80053; 83690; 85025; 99283